=== PATIENT | male | born 1935 | race Caucasian/White ===

== ENCOUNTER 2023-05-21 20:37 | Inpatient (IN) | payer MEDICARE ==
[2023-05-21] MEDS ORDERED: Guaifenesin DM 100-10/5 ML UDCUP PO PRN (21:31)
[2023-05-21] MEDS ORDERED: Senokot S 8.6-50 MG TAB PO PRN (21:31)
[2023-05-21] MEDS ORDERED: HYDROcodone/Acetaminophen 5/325 mg Tablet PO PRN (21:31)
[2023-05-21] MEDS ORDERED: Dextrose 5% in Water 1,000 ML IV PRN (21:31)
[2023-05-21] MEDS ORDERED: Glucagon 1 MG/ML KIT IM PRN (21:31)
[2023-05-21] MEDS ORDERED: Acetaminophen 325 MG TAB PO PRN (21:31)
[2023-05-21] MEDS ORDERED: Dextrose 50% Abboject 50 ML SYRINGE SLOW IVP PRN (21:31)
[2023-05-21] MEDS ORDERED: HumaLOG 300 UNITS/3 ML VIAL SC PRN (21:31)
[2023-05-21] MEDS ORDERED: Calcium Carbonate 500 MG ChewTAB PO PRN (21:31)
[2023-05-21] MEDS ORDERED: Ondansetron PF 4 MG/2 ML Vial IVP PRN (21:31)
[2023-05-21] MEDS ORDERED: Nitroglycerin 0.4 MG TAB (25 Tab Bottle) SL PRN (21:35)
[2023-05-21] MEDS ORDERED: Metoprolol Tartrate 25 MG TAB PO SCH (21:45)
[2023-05-21 22:34] LABS: Troponin I 4.255 ng/mL (< 0.028)
[2023-05-21 23:11] VITALS: BMI 30.9
[2023-05-22 03:42] LABS: #Basophils 0.1 10x3/uL (0.0-0.2); #Eosinphils 0.5 10x3/uL (0.0-0.5); #Monocytes 1.1 10x3/uL (0.0-1.1); #Neutrophils 5.7 10x3/uL (1.5-8.4); %Basophils 0.6 % (0.0-2.0); %Monocytes 10.2 % (0.0-10.0); %Neutrophils 54.6 % (40.0-75.0); Hematocrit 38.9 % (38.8-50.0); Hemoglobin 13.2 g/dL (13.5-17.5); Mean Corpuscular HGB CONC 33.9 g/dL (32.0-36.0); Mean Corpuscular Hemoglobin 29.9 pg (27.0-33.0); Mean Corpuscular Volume 88.2 fl (81.2-95.1); Mean Platelet Volume 9.1 fl (7.4-10.4); Platelet Count 333 10x3/uL (150-450); RBC Distribution Width 13.7 % (11.5-14.5); Red Blood Cell (RBC) Count 4.41 10x6/uL (4.32-5.72); White Blood Cell (WBC) Count 10.3 10x3/uL (3.5-10.5)
[2023-05-22 03:56] LABS: Anion Gap 14 mmol/L (10-20); BUN (Urea Nitrogen) 12 mg/dL (8.4-25.7); Calc. Creatinine Clearance 70 mL/min (70-130); Calcium 8.4 mg/dL (7.8-10.44); Carbon Dioxide 22 mmol/L (23-31); Cardiac Risk 4.5 (Less than 4.5); Chloride 104 mmol/L (98-107); Cholesterol 136 mg/dl (< 200 Desired); Estimated GFR 70; Glucose 128 mg/dL (83-110); HDL Cholesterol 30 mg/dL (>60 Neg Risk); LDL Cholesterol, Calculated 83 mg/dL; Potassium 3.7 mmol/L (3.5-5.1); Sodium 136 mmol/L (136-145); Triglycerides 114 mg/dL (Less than 150)
[2023-05-22] MEDS ORDERED: Sodium Chloride 0.9% 500 ML IV SCH ×2 (06:00→11:00)
[2023-05-22] MEDS ORDERED: Lidocaine 1% (PF) 30 ML VIAL ONE ×2 (07:31→09:20)
[2023-05-22] MEDS ORDERED: Heparin 10,000 UNITS/ 10 ML VIAL ONE ×2 (07:31→09:20)
[2023-05-22] MEDS ORDERED: Nitroglycerin 50 MG/250 ML BOT 250 ML ONE ×2 (07:31→09:20)
[2023-05-22] MEDS ORDERED: Midazolam HCl 2 mg/2 ml Vial ONE (07:32)
[2023-05-22] MEDS ORDERED: fentaNYL 50 mcg/mL 1 mL Vial ONE ×2 (07:32→08:58)
[2023-05-22] MEDS ORDERED: Verapamil 5 MG/2 ML VIAL ONE (07:32)
[2023-05-22] MEDS ORDERED: Atropine Sulfate 1 mg/1 ml Vial ONE (08:27)
[2023-05-22] MEDS ORDERED: Adenosine 6 MG/2 ML VIAL ONE (08:27)
[2023-05-22] MEDS ORDERED: TICAGRELOR 90 MG TABLET ONE (08:28)
[2023-05-22] MEDS ORDERED: hydrALAZINE 20 MG/ML VIAL SLOW IVP PRN (08:55)
[2023-05-22] MEDS ORDERED: Metoprolol Tartrate 5 MG/5 ML VIAL ONE (09:16)
[2023-05-22] MEDS ORDERED: Tirofiban-0.9% Sodium Chloride 250 ML ONE (09:33)
[2023-05-22] MEDS ORDERED: Iopamidol 300 61% 100 ML VIAL FS ONE (09:34)
[2023-05-22] MEDS ORDERED: Amlodipine 5 MG TAB PO SCH ×2 (10:00→21:00)
[2023-05-22] MEDS ORDERED: Nitroglycerin 0.4 MG TAB (25 Tab Bottle) SL PRN (10:21)
[2023-05-22] MEDS ORDERED: Acetaminophen/Codeine 30-300mg Tablet PO PRN ×2 (10:21)
[2023-05-22] MEDS ORDERED: Sodium Chloride 0.9% 200 ML IV PRN (10:21)
[2023-05-22] MEDS ORDERED: Tirofiban-0.9% Sodium Chloride 250 ML IVPB SCH (10:30)
[2023-05-22] MEDS ORDERED: Valsartan 80 MG TAB PO SCH (11:00)
[2023-05-22] MEDS ORDERED: Lisinopril 10 MG TAB PO SCH (13:00)
[2023-05-22] MEDS: Pantoprazole 40 MG VIAL IVP SCH (13:02)
[2023-05-22] MEDS: Carvedilol 12.5 MG TAB PO SCH ×2 (13:02→17:04)
[2023-05-22] MEDS: Aspirin 81 mg Enteric Coated Tablet PO SCH (13:02)
[2023-05-22 13:43] LABS: Hemoglobin A1c 6.1 % (4.0-6.0)
[2023-05-22 15:35] LABS: Troponin I 31.749 ng/mL (< 0.028)
[2023-05-22] MEDS: CO Q-10 CAPSULE 50 MG PO SCH (20:49)
[2023-05-22] MEDS: Atorvastatin Calcium 20 MG TAB PO SCH (20:50)
[2023-05-22] MEDS: Amlodipine 5 MG TAB PO SCH (20:50)
[2023-05-22] MEDS ORDERED: Zolpidem Tartrate 5 MG TAB PO PRN (20:54)
[2023-05-22] MEDS ORDERED: Losartan 50 MG TAB PO SCH (21:00)
[2023-05-23 06:26] LABS: Anion Gap 15 mmol/L (10-20); BUN (Urea Nitrogen) 9 mg/dL (8.4-25.7); Calc. Creatinine Clearance 72 mL/min (70-130); Calcium 8.8 mg/dL (7.8-10.44); Carbon Dioxide 20 mmol/L (23-31); Chloride 104 mmol/L (98-107); Estimated GFR 73; Glucose 103 mg/dL (83-110); Magnesium 1.9 mg/dL (1.6-2.6); Sodium 135 mmol/L (136-145)
[2023-05-23 06:28] LABS: #Basophils 0.1 10x3/uL (0.0-0.2); #Eosinphils 0.6 10x3/uL (0.0-0.5); #Neutrophils 7.1 10x3/uL (1.5-8.4); %Basophils 0.7 % (0.0-2.0); %Eosinophils 5.5 % (0.0-6.0); %Lymphocytes 22.7 % (18.0-47.0); %Monocytes 8.8 % (0.0-10.0); %Neutrophils 61.8 % (40.0-75.0); Hematocrit 40.8 % (38.8-50.0); Hemoglobin 13.8 g/dL (13.5-17.5); Mean Corpuscular HGB CONC 33.8 g/dL (32.0-36.0); Mean Corpuscular Hemoglobin 30.1 pg (27.0-33.0); Mean Corpuscular Volume 88.9 fl (81.2-95.1); Mean Platelet Volume 9.1 fl (7.4-10.4); Platelet Count 358 10x3/uL (150-450); Red Blood Cell (RBC) Count 4.59 10x6/uL (4.32-5.72); White Blood Cell (WBC) Count 11.4 10x3/uL (3.5-10.5)
[2023-05-23] MEDS: Pantoprazole 40 MG VIAL IVP SCH (08:20)
[2023-05-23] MEDS: Valsartan 80 MG TAB PO SCH (08:20)
[2023-05-23] MEDS: TICAGRELOR 90 MG TABLET PO SCH ×2 (08:20→20:36)
[2023-05-23] MEDS: Aspirin 81 mg Enteric Coated Tablet PO SCH (08:21)
[2023-05-23] MEDS: Carvedilol 12.5 MG TAB PO SCH ×2 (08:21→18:23)
[2023-05-23] MEDS: Amlodipine 5 MG TAB PO SCH ×2 (08:21→20:38)
[2023-05-23] MEDS: Lisinopril 10 MG TAB PO SCH (08:21)
[2023-05-23] MEDS: CO Q-10 CAPSULE 50 MG PO SCH (20:36)
[2023-05-23] MEDS: Atorvastatin Calcium 20 MG TAB PO SCH (20:36)
[2023-05-23] MEDS ORDERED: Lorazepam 0.5 MG TAB PO SCH (21:00)
[2023-05-24] MEDS: Valsartan 80 MG TAB PO SCH (09:39)
[2023-05-24] MEDS: Aspirin 81 mg Enteric Coated Tablet PO SCH (09:39)
[2023-05-24] MEDS: Lisinopril 10 MG TAB PO SCH (09:39)
[2023-05-24] MEDS: Carvedilol 12.5 MG TAB PO SCH (09:39)
[2023-05-24] MEDS: TICAGRELOR 90 MG TABLET PO SCH (09:40)
[2023-05-24] MEDS: Amlodipine 5 MG TAB PO SCH (09:40)
[2023-05-24 14:26] VITALS: BP 157/86; TEMP 97.7
== END 2023-05-24 13:35 | disposition home or self-care (01) | DRG 321 ==
LOC: CSHTELE 20:37 → CSHIMCU 05-22 11:19 → CSHTELE 05-23 16:02
PROVIDERS: ADMIT Internal Medicine; ATTEND Internal Medicine
PROC: 4A023N7 Measurement of Cardiac Sampling and Pressure, Left Heart, Percutaneous Approach (ICD-10-PCS; principal; 2023-05-22)
PROC: 027136Z Dilation of Coronary Artery, Two Arteries with Three Drug-eluting Intraluminal Devices, Percutaneous Approach (ICD-10-PCS; 2023-05-22)
PROC: 02C03ZZ Extirpation of Matter from Coronary Artery, One Artery, Percutaneous Approach (ICD-10-PCS; 2023-05-22)
PROC: B2151ZZ Fluoroscopy of Left Heart using Low Osmolar Contrast (ICD-10-PCS; 2023-05-22)
PROC: B2111ZZ Fluoroscopy of Multiple Coronary Arteries using Low Osmolar Contrast (ICD-10-PCS; 2023-05-22)
DX: T82.867A Thrombosis due to cardiac prosthetic devices, implants and grafts, initial encounter (principal); I21.4 Non-ST elevation (NSTEMI) myocardial infarction; I16.9 Hypertensive crisis, unspecified; I24.9 Acute ischemic heart disease, unspecified; I12.9 Hypertensive chronic kidney disease with stage 1 through stage 4 chronic kidney disease, or unspecified chronic kidney disease; E78.5 Hyperlipidemia, unspecified; N18.2 Chronic kidney disease, stage 2 (mild); E11.22 Type 2 diabetes mellitus with diabetic chronic kidney disease; K21.9 Gastro-esophageal reflux disease without esophagitis; Z88.0 Allergy status to penicillin; Z79.899 Other long term (current) drug therapy; Z79.82 Long term (current) use of aspirin; M19.90 Unspecified osteoarthritis, unspecified site; Z96.653 Presence of artificial knee joint, bilateral; Z98.890 Other specified postprocedural states; Z82.49 Family history of ischemic heart disease and other diseases of the circulatory system; Z87.891 Personal history of nicotine dependence; I25.10 Atherosclerotic heart disease of native coronary artery without angina pectoris; Y84.8 Other medical procedures as the cause of abnormal reaction of the patient, or of later complication, without mention of misadventure at the time of the procedure
CPT/HCPCS: 36415; 36416; 80048; 80061; 83036; 83735; 84484; 85025; 85347; 92928; 92941; 93005; 93010; 93306; 93458; 94760; 99152; 99153; C1725; C1760; C1769; C1874; C1876; C1887; C1894; C9113; C9600; C9606; J0153; J0461; J1644; J1650; J2001; J2250; J3010; J3246; J7030